=== PATIENT | female | born 1955 | race Caucasian/White ===

== ENCOUNTER → 2019-01-02 | Outpatient (CLI) | payer OTHER | END | disposition home or self-care (01) | LOC: ROC 08:44 | PROVIDERS: ATTEND Radiology Radiation Oncology | DX: D37.02 Neoplasm of uncertain behavior of tongue (principal) | CPT/HCPCS: 99214; G0463 ==

== ENCOUNTER 2019-03-09 08:04 | Day surgery (SDC) | payer OTHER ==
[~2019-03-09] VITALS: Ht 152.4 cm; Wt 49.8 kg
[2019-03-09 08:51] VITALS: BP 142/62
[2019-03-09] MEDS ORDERED: BACL-19 PO (08:56)
[2019-03-09] MEDS ORDERED: HYDR-3237 PO (08:56)
[2019-03-09] MEDS ORDERED: IBUP-1222 PO (08:56)
[2019-03-09] MEDS ORDERED: PARO10TA3 PO (08:56)
[2019-03-09] MEDS ORDERED: SODIUM CHLORIDE 0.9% 1,000 ML IV SCH (09:05)
[2019-03-09] MEDS ORDERED: FLUMAZENIL 0.1 MG/1 ML, 5ML ONE (09:22)
[2019-03-09] MEDS ORDERED: MIDAZOLAM 1 MG/ML, 5ML ONE (09:22)
[2019-03-09] MEDS ORDERED: LIDOCAINE-MPF 1%, 5ML ONE ×3 (09:22→10:14)
[2019-03-09] MEDS ORDERED: FENTANYL PF 100 MCG/2ML ONE (09:22)
[2019-03-09] MEDS ORDERED: NALOXONE 1 MG/ML, 2ML ONE (09:22)
[2019-03-09] MEDS ORDERED: LIDOCAINE 2%, 6 ML JEL.PF.APP MM ONE (09:34)
[2019-03-09] MEDS ORDERED: VISIPAQUE 270 MG/ML, 50ML BOTTLE ONE (11:52)
== END 2019-03-09 13:10 | disposition home or self-care (01) ==
LOC: OUT 08:04
PROVIDERS: ATTEND Radiology Radiation Oncology
DX: C01 Malignant neoplasm of base of tongue (principal); E46 Unspecified protein-calorie malnutrition; Z88.8 Allergy status to other drugs, medicaments and biological substances; Z87.891 Personal history of nicotine dependence; Z79.899 Other long term (current) drug therapy; Z98.890 Other specified postprocedural states; Z80.1 Family history of malignant neoplasm of trachea, bronchus and lung; Z82.49 Family history of ischemic heart disease and other diseases of the circulatory system
CPT/HCPCS: 49440; 99156; 99157; C1725; C1729; C1751; C1769; C1894; J2250; J3010; J7030; Q9966; J2310

== ENCOUNTER 2019-04-17 07:14 | Outpatient (CLI) | payer OTHER ==
[~2019-04-17 07:14] MED LIST: BACL-19 PO; HYDR-3237 PO; IBUP-1222 PO; PARO10TA3 PO
== END 2019-04-17 23:59 | disposition home or self-care (01) ==
LOC: ROC 07:14
PROVIDERS: ATTEND Radiology Radiation Oncology
DX: C01 Malignant neoplasm of base of tongue (principal)
CPT/HCPCS: 99213; G0463

== ENCOUNTER 2019-07-20 09:51 | Outpatient (CLI) | payer OTHER ==
[~2019-07-20 09:51] MED LIST changes: +AMOX1TAB64 PO; +HYDR-3245 PO
== END 2019-07-20 23:59 | disposition home or self-care (01) ==
LOC: ROC 09:51
PROVIDERS: ATTEND Radiology Radiation Oncology
DX: Z08 Encounter for follow-up examination after completed treatment for malignant neoplasm (principal); Z85.810 Personal history of malignant neoplasm of tongue
CPT/HCPCS: 99212; G0463

== ENCOUNTER → 2019-08-24 | Outpatient (CLI) | payer OTHER | END | disposition home or self-care (01) | LOC: ROC 10:01 | PROVIDERS: ATTEND Radiology Radiation Oncology | DX: C01 Malignant neoplasm of base of tongue (principal); Z85.810 Personal history of malignant neoplasm of tongue; F17.200 Nicotine dependence, unspecified, uncomplicated; Z88.0 Allergy status to penicillin; Z88.1 Allergy status to other antibiotic agents | CPT/HCPCS: 99212; G0463 ==

== ENCOUNTER 2019-09-29 12:08 | Emergency (ER) | payer OTHER ==
[~2019-09-29] VITALS: Ht 152.4 cm; Wt 45.8 kg
--- NOTE | 2019-09-29 12:33 | NUR ---
Pt here today for g-tube insertion site bulging and having odd drainage. When pt removed dressing it appared purulent and is bulging. 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 Pt reports its uncomfortable and this is her second feeding tube shes had to have placed. Pt denies any other complaints at this time. Pt resting in bed. Awaiting further orders.
[2019-09-29] MEDS ORDERED: SODIUM CHLORIDE 0.9% 1,000ML IVBOLUS ONE (13:00)
[2019-09-29] MEDS ORDERED: SODIUM CHLORIDE FLUSH 10ML SYR IVF ONE (13:00)
[2019-09-29 13:05] LABS: BASOPHILS % (AUTO) 0 % (0-1); EOSINOPHILS # (AUTO) 0.06 x10^3/uL (0-0.4); EOSINOPHILS % (AUTO) 1 % (1-7); LYMPHOCYTES # (AUTO) 0.34 x10^3/uL (1-3.4); LYMPHOCYTES % (AUTO) 4 % (22-44); MD NO; MEAN CORPUSCULAR HEMOGLOBIN 29.3 pg (27.0-34.8); MEAN CORPUSCULAR HGB CONC 32.5 g/dL (32.4-35.8); MEAN CORPUSCULAR VOLUME 90.3 fL (80-100); MEAN PLATELET VOLUME 6.7 fL (7.4-10.4); MONOCYTES # (AUTO) 0.59 x10^3/uL (0.2-0.8); MONOCYTES % (AUTO) 7 % (2-9); NEUTROPHILS # (AUTO) 6.96 x10^3/uL (1.8-6.8); NEUTROPHILS % (AUTO) 88 % (42-75); PLATELET COUNT 472 x10^3/uL (130-400); RED BLOOD COUNT 3.74 x10^6/uL (3.82-5.3); RED CELL DISTRIBUTION WIDTH 15.1 % (9.6-15.2)
[2019-09-29 13:17] LABS: ALANINE AMINOTRANSFERASE 17 U/L (12-78); ALBUMIN 3.4 g/dL (3.4-5.0); ANION GAP 5 mmol/L (5-15); CALCIUM 10.1 mg/dL (8.5-10.1); CHLORIDE 102 mmol/L (98-107); CREATININE 0.64 mg/dL (0.55-1.02)
--- NOTE | 2019-09-29 13:18 | NUR ---
Piv placed and medicated per emar. Warm blanket provided for comfort.
[2019-09-29 13:19] LABS: ALKALINE PHOSPHATASE 86 U/L (45-117); BILIRUBIN,TOTAL 0.6 mg/dL (0.2-1.0); TOTAL PROTEIN 7.6 g/dL (6.4-8.2)
[2019-09-29 13:21] LABS: INTERNATIONAL NORMALIZED RATIO 0.97 (0.93-1.1); PROTHROMBIN TIME 10.2 Seconds (9.6-11.5)
[2019-09-29] MEDS ORDERED: OMNIPAQUE 350 MG/ML, 100ML BOTTLE ONE (13:53)
--- NOTE | 2019-09-29 15:44 | NUR ---
Patient is resting comfortably in bed. Vital Signs within normal limits.
[2019-09-29 15:46] LABS: MICROSCOPIC INDICATED
[2019-09-29 15:55] LABS: CULTURE INDICATED? YES
--- NOTE | 2019-09-29 17:33 | NUR ---
BREAK NOTE: PT. IS RESTING WITHOUT CONCERNS. VSS. PT. HAS THE CALL LIGHT IN PLACE AND THE SIDERAILS REMAIN UP X 2.
[2019-09-29] MEDS ORDERED: FENTANYL PF 100 MCG/2ML ONE (17:50)
[2019-09-29] MEDS ORDERED: MIDAZOLAM 1 MG/ML, 5ML ONE (17:50)
[2019-09-29] MEDS ORDERED: LIDOCAINE 1%, 20ML ONE (17:54)
[2019-09-29] MEDS ORDERED: LIDOCAINE 1%, 10ML ONE (17:58)
[2019-09-29 19:45] VITALS: BP 110/62
== END 2019-09-29 19:47 | disposition home or self-care (01) ==
LOC: ED 15:19
DX: K94.23 Gastrostomy malfunction (principal); R10.33 Periumbilical pain
CPT/HCPCS: 36415; 49450; 74177; 76000; 80053; 81001; 85025; 85610; 85730; 87040; 87086; 99156; 99157; 99285; C1725; C1729; C1751; C1769; J2250; J3010; J3490; J7030; Q9967; 99284

== ENCOUNTER 2020-02-29 15:00 | Outpatient (CLI) | payer OTHER | END 2020-02-29 23:59 | disposition home or self-care (01) | LOC: ROC 15:00 | PROVIDERS: ATTEND Radiology Radiation Oncology | DX: C01 Malignant neoplasm of base of tongue (principal); Z43.1 Encounter for attention to gastrostomy; Z87.891 Personal history of nicotine dependence | CPT/HCPCS: 99213; G0463 ==

== ENCOUNTER 2020-03-06 12:48 | Emergency (ER) | payer OTHER ==
[~2020-03-06] VITALS: Ht 162.6 cm; Wt 44.9 kg
--- NOTE | 2020-03-06 13:10 | NUR ---
Pt back to room now.
--- NOTE | 2020-03-06 13:21 | NUR ---
Pt here for gastric tube obstruction, gastric tube flushed without difficulty. Pt reports she tried multiple times and said it did not work. Pt educated on how to flush tube.
--- NOTE | 2020-03-06 13:52 | NUR ---
Pt to IR.
--- NOTE | 2020-03-06 13:57 | NUR ---
REPORT FROM PAULETTE ARREDONDO. PT CARE RESPONSIBILITIES ASSUMED.
[2020-03-06 14:40] VITALS: BP 141/74
--- NOTE | 2020-03-06 15:03 | NUR ---
PT RETURNED FROM IR. UP TO RESTROOM WITH NO ASSISTANCE NECESSARY. DENIES ANY NEEDS OR CONCERNS AT THIS TIME, CALL LIGHT IN REACH.
== END 2020-03-06 15:38 | disposition home or self-care (01) ==
LOC: ED 13:24
DX: K94.23 Gastrostomy malfunction (principal); F17.200 Nicotine dependence, unspecified, uncomplicated
CPT/HCPCS: 49450; 75984; 99285

== ENCOUNTER → 2020-04-14 | Outpatient (CLI) | payer OTHER ==
[~2020-04-14] MED LIST changes: +OMNIPAQUE 350 MG/ML, 150 ML BOTTLE ONE
== END | disposition home or self-care (01) ==
LOC: RAD 09:53
PROVIDERS: ATTEND Student in an Organized Health Care Education/Training Program
DX: C10.9 Malignant neoplasm of oropharynx, unspecified (principal); R91.8 Other nonspecific abnormal finding of lung field
CPT/HCPCS: 36415; 70491; 71260; 82565; Q9967

== ENCOUNTER 2020-05-02 12:11 | Emergency (ER) | payer OTHER ==
[~2020-05-02] VITALS: Ht 152.4 cm; Wt 44.2 kg
[~2020-05-02 12:11] MED LIST changes: -OMNIPAQUE 350 MG/ML, 150 ML BOTTLE ONE
[2020-05-02 12:19] VITALS: BP 88/56
--- NOTE | 2020-05-02 12:50 | NUR ---
MEDIA REPORTER: PT TO ROOM FROM LOBBY
--- NOTE | 2020-05-02 13:05 | NUR ---
PT RESTING COMFORTABLY IN GOWN IN [facility]. DR OTT AT BS AT THIS TIME.
--- NOTE | 2020-05-02 15:05 | NUR ---
PT D/C WITH D/C SUMMARY AND VERBALIZES UNDERSTANDING OF F/U INSTRUCTIONS. PT DENIES ANY OTHER NEEDS PERTAINING TO THIS VISIT AND AMBULATES TO REGISTRATION DESK WITH STEADY GAIT FOR D/C [facility].
== END 2020-05-02 15:21 | disposition home or self-care (01) ==
LOC: ED 14:45
DX: K94.23 Gastrostomy malfunction (principal); Z85.818 Personal history of malignant neoplasm of other sites of lip, oral cavity, and pharynx
CPT/HCPCS: 99281

== ENCOUNTER 2020-05-02 16:35 | Emergency (ER) | payer OTHER ==
[~2020-05-02] VITALS: Ht 152.4 cm; Wt 44.4 kg
[2020-05-02 16:51] VITALS: BP 84/40
--- NOTE | 2020-05-02 17:26 | NUR ---
PT TO RADIOLOGY VIA [facility] AT THIS TIME.
--- NOTE | 2020-05-02 19:13 | NUR ---
PT D/C WITH D/C SUMMARY. ALL QUESTIONS ANSWERED. PT AMBULATES TO REGISTRATION DESK WITH STEADY GAIT FOR D/C HOME AND DENIES ANY OTHER NEEDS PERTAINING TO THIS VISIT.
== END 2020-05-02 19:15 | disposition home or self-care (01) ==
LOC: ED 19:00
DX: K94.23 Gastrostomy malfunction (principal); Z86.003 Personal history of in-situ neoplasm of oral cavity, esophagus and stomach
CPT/HCPCS: 75984; 99285

== ENCOUNTER → 2020-06-24 | Outpatient (CLI) | payer OTHER ==
[~2020-06-24] MED LIST changes: +BACL5TAB PEG; +GLYC2TAB21 PEG; +NICO-487 TD; +PARO10TA3 PEG; -PARO10TA3 PO
== END | disposition home or self-care (01) ==
LOC: STAR 12:53
PROVIDERS: ATTEND Anesthesiology
DX: Z01.812 Encounter for preprocedural laboratory examination (principal); Z20.828 Contact with and (suspected) exposure to other viral communicable diseases
CPT/HCPCS: 36415; 87635

== ENCOUNTER 2020-06-28 07:20 | Emergency (ER) | payer OTHER ==
[~2020-06-28] VITALS: Ht 152.4 cm; Wt 46.0 kg
[~2020-06-28 07:20] MED LIST changes: -BACL5TAB PEG; -GLYC2TAB21 PEG; -NICO-487 TD
--- NOTE | 2020-06-28 07:59 | NUR ---
PT PLACED IN HOSPITAL GOWN. EKG DONE. PT GIVEN WARM BLANKET, PT ON CARDIAC AND VITALS MONITORS.
[2020-06-28] MEDS ORDERED: MORPHINE SULFATE 4 MG/ML, 1ML IVPush PRN (08:00)
[2020-06-28] MEDS ORDERED: SODIUM CHLORIDE 0.9% 1,000ML IVBOLUS ONE (08:00)
[2020-06-28] MEDS ORDERED: ONDANSETRON 2MG/ML, 2ML IVPush ONE (08:00)
[2020-06-28] MEDS ORDERED: ONDANSETRON 2MG/ML, 2ML ONE (08:09)
[2020-06-28] MEDS ORDERED: MORPHINE SULFATE 4 MG/ML, 1ML ONE (08:09)
[2020-06-28] MEDS ORDERED: GLYC2TAB21 PEG (08:25)
[2020-06-28] MEDS ORDERED: NICO-487 TD (08:25)
--- NOTE | 2020-06-28 08:35 | NUR ---
IV STARTED, PT MEDICATED PER EMAR. LAB IN NOW DRAWING BLOOD CULTURES. PT UPDATED TO PLAN OF CARE.
[2020-06-28 08:44] LABS: BASOPHILS # (AUTO) 0.04 x10^3/uL (0-0.1); BASOPHILS % (AUTO) 0 % (0-1); EOSINOPHILS # (AUTO) 0.15 x10^3/uL (0-0.4); EOSINOPHILS % (AUTO) 1 % (1-7); LYMPHOCYTES # (AUTO) 0.39 x10^3/uL (1-3.4); LYMPHOCYTES % (AUTO) 4 % (22-44); MD NO; MEAN CORPUSCULAR HEMOGLOBIN 30.3 pg (27.0-34.8); MEAN CORPUSCULAR HGB CONC 32.7 g/dL (32.4-35.8); MEAN PLATELET VOLUME 6.9 fL (7.4-10.4); MONOCYTES # (AUTO) 0.44 x10^3/uL (0.2-0.8); MONOCYTES % (AUTO) 4 % (2-9); NEUTROPHILS # (AUTO) 9.37 x10^3/uL (1.8-6.8); NEUTROPHILS % (AUTO) 90 % (42-75); PLATELET COUNT 412 x10^3/uL (130-400); RED BLOOD COUNT 3.68 x10^6/uL (3.82-5.3); RED CELL DISTRIBUTION WIDTH 12.4 % (9.6-15.2)
[2020-06-28 08:54] LABS: ALBUMIN 3.1 g/dL (3.4-5.0); ANION GAP 3 mmol/L (5-15); CALCIUM 9.5 mg/dL (8.5-10.1); CHLORIDE 97 mmol/L (98-107); CREATININE 0.54 mg/dL (0.55-1.02)
--- NOTE | 2020-06-28 09:00 | NUR ---
PT PLACED ON 2.5L O2 DUE TO DESATING AFTER MORPHINE ADMIN. PT SATING 96% WITH O2, WILL CONTINUE TO MONITOR.
[2020-06-28 09:37] LABS: MICROSCOPIC NOT IND
--- NOTE | 2020-06-28 09:44 | NUR ---
URINE TAKEN TO LAB. PT RESTING IN BED, SNOOZING OFF AND ON.
[2020-06-28 10:55] VITALS: BP 142/62
[2020-06-29] MEDS ORDERED: BACL5TAB PEG (07:46)
== END 2020-06-28 10:51 | disposition home or self-care (01) ==
LOC: ED 08:31
DX: E87.1 Hypo-osmolality and hyponatremia (principal); R25.1 Tremor, unspecified; I51.7 Cardiomegaly; Z79.899 Other long term (current) drug therapy; Z85.819 Personal history of malignant neoplasm of unspecified site of lip, oral cavity, and pharynx
CPT/HCPCS: 71045; 80048; 81003; 82040; 82962; 83605; 85025; 87040; 93005; 96361; 96374; 96375; 99285; J2270; J2405; J7030

== ENCOUNTER 2020-08-05 14:38 | Emergency (ER) | payer OTHER ==
[~2020-08-05] VITALS: Ht 152.4 cm; Wt 46.5 kg
[~2020-08-05 14:38] MED LIST changes: +BACL5TAB PEG; +GLYC2TAB21 PEG; +NICO-487 TD
--- NOTE | 2020-08-05 14:52 | NUR ---
DIRECTOR OF MUSIC THERAPY: PT TO ROOM, [facility]
[2020-08-05 15:20] LABS: MEAN CORPUSCULAR HEMOGLOBIN 28.8 pg (27.0-34.8); MEAN PLATELET VOLUME 6.5 fL (7.4-10.4); PLATELET COUNT 731 x10^3/uL (130-400); RED BLOOD COUNT 3.17 x10^6/uL (3.82-5.3); RED CELL DISTRIBUTION WIDTH 17.7 % (9.6-15.2)
[2020-08-05 15:28] LABS: ALBUMIN 2.4 g/dL (3.4-5.0); ANION GAP 7 mmol/L (5-15); CALCIUM 9.6 mg/dL (8.5-10.1); CHLORIDE 104 mmol/L (98-107); CREATININE 0.87 mg/dL (0.55-1.02)
[2020-08-05 15:36] LABS: MD YES
--- NOTE | 2020-08-05 15:37 | NUR ---
SON, BRYAN, PHONE NUMBER .
--- NOTE | 2020-08-05 15:45 | NUR ---
RESPIRATORY THERAPY CLEANED INNER CANULA OF TRACHEOSTOMY AND REMOVED A MUCOUS PLUG ALSO. DR. ZHENG NOTIFIED.
[2020-08-05 16:25] LABS: BANDS%(MANUAL) 4 % (0-7); LYMPH#(MANUAL) 0.69 x10^3/uL (1-3.4); LYMPHS% (MANUAL) 7 % (22-44); MONOS% (MANUAL) 5 % (2-9); SEG#(MANUAL) 8.32 x10^3/uL (1.8-6.8); SEGS% (MANUAL) 84 % (42-75)
[2020-08-05 16:26] LABS: HYPOCHROMIA 1+; MICROCYTOSIS 1+; POLYCHROMASIA 1+
[2020-08-05 16:27] LABS: <PLATELET ESTIMATE> INCREASED; SMALL PLATELETS 1+
[2020-08-05 16:34] VITALS: BP 108/45
== END 2020-08-05 16:36 | disposition home or self-care (01) ==
LOC: ED 15:52
DX: R06.09 Other forms of dyspnea (principal); C79.89 Secondary malignant neoplasm of other specified sites; C80.1 Malignant (primary) neoplasm, unspecified
CPT/HCPCS: 36415; 71045; 80048; 82040; 85025; 99284

== ENCOUNTER 2020-08-07 23:56 | Inpatient (IN) | payer OTHER ==
[~2020-08-07] VITALS: Ht 152.4 cm; Wt 41.0 kg
[2020-08-08] MEDS ORDERED: SODIUM CHLORIDE FLUSH 10ML SYR IVF ONE (00:30)
--- NOTE | 2020-08-08 00:30 | NUR ---
PT RESTING IN [place] WITH SON AT BEDSIDE. NO COMPLAINTS OR NEEDS AT THIS TIME.
[2020-08-08 01:26] LABS: BASOPHILS % (AUTO) 1 % (0-1); EOSINOPHILS % (AUTO) 0 % (1-7); LYMPHOCYTES % (AUTO) 1 % (22-44); MEAN CORPUSCULAR HEMOGLOBIN 28.3 pg (27.0-34.8); MEAN CORPUSCULAR HGB CONC 32.6 g/dL (32.4-35.8); MEAN PLATELET VOLUME 6.6 fL (7.4-10.4); MONOCYTES % (AUTO) 6 % (2-9); NEUTROPHILS % (AUTO) 92 % (42-75); PLATELET COUNT 739 x10^3/uL (130-400); RED BLOOD COUNT 3.08 x10^6/uL (3.82-5.3); RED CELL DISTRIBUTION WIDTH 19.1 % (9.6-15.2)
[2020-08-08 01:33] LABS: ALBUMIN 2.5 g/dL (3.4-5.0); ANION GAP 8 mmol/L (5-15); CALCIUM 9.1 mg/dL (8.5-10.1); CHLORIDE 97 mmol/L (98-107); CREATININE 1.45 mg/dL (0.55-1.02)
--- NOTE | 2020-08-08 01:36 | NUR ---
PT RESTING IN GURNEY WITH EYES CLOSED. SON AT BEDSIDE, NO NEEDS AT THIS TIME.
[2020-08-08 01:38] LABS: ALKALINE PHOSPHATASE 83 U/L (45-117); BILIRUBIN,TOTAL 0.5 mg/dL (0.2-1.0); TOTAL PROTEIN 6.5 g/dL (6.4-8.2)
[2020-08-08 01:40] LABS: ALANINE AMINOTRANSFERASE 1575 U/L (12-78)
[2020-08-08 01:44] LABS: TROPONIN I 0.517 ng/mL (0.000-0.045)
[2020-08-08] MEDS ORDERED: CEFEPIME 1 GM in DEXTROSE 5% 50 ML IV ONE (02:00)
[2020-08-08] MEDS ORDERED: AZITHROMYCIN 500 MG in SODIUM CHLORIDE 0.9% 250 ML IV ONE (02:00)
[2020-08-08] MEDS ORDERED: VANCOMYCIN PER PHARMACY MC PRN ×2 (02:00→04:00)
[2020-08-08] MEDS ORDERED: VANCOMYCIN 1,300 MG in SODIUM CHLORIDE 0.9% 250 ML IV ONE (02:00)
--- NOTE | 2020-08-08 02:01 | NUR ---
GEE RN: REPORT RECEIVED FROM REGINA CALDWELL
--- NOTE | 2020-08-08 02:05 | NUR ---
REPORT GIVEN TO PAULETTE BRANDON.
--- NOTE | 2020-08-08 02:05 | NUR ---
SON'S PHONE NUMBER - [phone]
[2020-08-08 02:16] LABS: MD SCAN
--- NOTE | 2020-08-08 02:29 | NUR ---
BREAK RN: REPORT GIVEN TO PRIMARY RN
[2020-08-08] MEDS ORDERED: SODIUM CHLORIDE 0.9% 1,000ML IVBOLUS ONE (03:00)
--- NOTE | 2020-08-08 03:15 | NUR ---
ZITHROMYACIN FINISHED. NS RUNNING. PT SLEEPING WITH NO NEEDS AT THIS TIME. VSS. CALL LIGHT IN REACH
[2020-08-08] MEDS ORDERED: POLYETHYLENE GLYCOL 17 GM PACKET PO PRN (03:30)
[2020-08-08] MEDS ORDERED: BISACODYL 10 MG SUPP PR PRN (03:30)
[2020-08-08] MEDS ORDERED: ONDANSETRON ODT 4 MG PO PRN (03:30)
[2020-08-08] MEDS ORDERED: ONDANSETRON 2MG/ML, 2ML IVPush PRN ×2 (03:30→17:00)
[2020-08-08] MEDS ORDERED: D5%-0.45NACL+KCL 20MEQ 1,000 ML IV SCH (03:30)
[2020-08-08] MEDS ORDERED: OXYcodone IR 5MG TABLET PO PRN (03:30)
[2020-08-08] MEDS ORDERED: PROMETHAZINE 25 MG/ML, 1ML IM PRN (03:30)
[2020-08-08] MEDS ORDERED: LABETALOL 5MG/ML, 20ML IVPush PRN (03:30)
[2020-08-08] MEDS ORDERED: DOCUSATE 100 MG CAPSULE PO PRN (03:30)
[2020-08-08 04:00] LABS: FREE T4 (FREE THYROXINE) 1.27 ng/dL (0.76-1.46)
[2020-08-08] MEDS ORDERED: ERTAPENEM 1 GM in SODIUM CHLORIDE 0.9% 50 ML IV SCH (04:00)
--- NOTE | 2020-08-08 04:01 | NUR ---
ABX RUNNING. PT HAS NO NEEDS AT THIS TIME. CALL LIGHT IN REACH
[2020-08-08] MEDS: D5%-0.45% NACL 1,000 ML IV SCH ×2 (04:49→12:33)
[2020-08-08] MEDS ORDERED: PHARMACOKINETIC CONSULTATION MC ONE (05:00)
[2020-08-08] MEDS ORDERED: PHARMACOKINETIC MONITORING MC PRN (05:00)
[2020-08-08 05:14] VITALS: BP 95/56
[2020-08-08] MEDS: BACLOFEN 10 MG TABLET PEG SCH ×2 (05:33→11:00)
[2020-08-08] MEDS: HEPARIN 5,000 UNITS/ML, 1ML SQ SCH ×2 (05:33→12:34)
[2020-08-08] MEDS: morphine SULFATE 10 MG/ML, 1ML IVPush PRN ×3 (06:43→16:41)
[2020-08-08] MEDS ORDERED: MORP20CA17 PO (07:04)
[2020-08-08] MEDS ORDERED: PAROXETINE 10 MG TABLET PEG SCH (09:00)
[2020-08-08 10:45] VITALS: BP 101/65
[2020-08-08] MEDS ORDERED: MORPHINE SULFATE 4 MG/ML, 1ML IVPush PRN (17:00)
[2020-08-08] MEDS: SCOPOLAMINE 1MG PATCH TD SCH (17:38)
[2020-08-08] MEDS: LORazepam 2 MG/ML, 1ML IVPush SCH (17:39)
[2020-08-08] MEDS: MORPHINE 30MG/30ML PCA.SYR IV PRN ×2 (17:53→23:33)
[2020-08-09] MEDS: LORazepam 2 MG/ML, 1ML IVPush SCH ×4 (01:33→22:22)
[2020-08-09 05:31] LABS: BASOPHILS % (AUTO) 1 % (0-1); EOSINOPHILS % (AUTO) 2 % (1-7); LYMPHOCYTES % (AUTO) 5 % (22-44); MEAN CORPUSCULAR HEMOGLOBIN 28.6 pg (27.0-34.8); MEAN CORPUSCULAR HGB CONC 32.4 g/dL (32.4-35.8); MEAN PLATELET VOLUME 6.5 fL (7.4-10.4); MONOCYTES % (AUTO) 12 % (2-9); NEUTROPHILS % (AUTO) 81 % (42-75); PLATELET COUNT 613 x10^3/uL (130-400); RED BLOOD COUNT 2.86 x10^6/uL (3.82-5.3); RED CELL DISTRIBUTION WIDTH 18.2 % (9.6-15.2)
[2020-08-09 05:36] LABS: ALANINE AMINOTRANSFERASE 933 U/L (12-78); ALBUMIN 1.9 g/dL (3.4-5.0); ANION GAP 3 mmol/L (5-15); CALCIUM 8.6 mg/dL (8.5-10.1); CHLORIDE 103 mmol/L (98-107); CHOLESTEROL, TOTAL 117 mg/dL (140-239); CREATININE 0.71 mg/dL (0.55-1.02)
[2020-08-09 05:39] LABS: ALKALINE PHOSPHATASE 72 U/L (45-117); BILIRUBIN,TOTAL 0.6 mg/dL (0.2-1.0); CHOL/HDL RATIO 3.9; HDL CHOL % 26 % (28-40); HDL CHOLESTEROL (DIRECT) 30 mg/dL (40-60); LDL CHOLESTEROL,CALCULATED 62 mg/dL (54-169); LDL/HDL RATIO 2.1 (0.5-3.0); TOTAL PROTEIN 5.8 g/dL (6.4-8.2); TRIGLYCERIDES 126 mg/dL (50-200); VANCOMYCIN,RANDOM 7.5 mcg/mL; VLDL CHOLESTEROL 25 mg/dL (0-25)
[2020-08-09 05:42] LABS: MD NO
[2020-08-09] MEDS: MORPHINE 30MG/30ML PCA.SYR IV PRN ×5 (06:03→23:00)
[2020-08-09] MEDS: LORazepam 2 MG/ML, 1ML IVPush PRN ×2 (12:05→18:09)
[2020-08-10] MEDS: MORPHINE 30MG/30ML PCA.SYR IV PRN ×2 (03:21→07:53)
[2020-08-10] MEDS: LORazepam 2 MG/ML, 1ML IVPush SCH ×4 (03:52→21:55)
[2020-08-10] MEDS: morphine SULFATE 100 MG in DEXTROSE 5% 90 ML IV PRN ×2 (12:15→23:43)
[2020-08-11] MEDS: LORazepam 2 MG/ML, 1ML IVPush SCH ×4 (03:44→21:11)
[2020-08-11] MEDS: morphine SULFATE 100 MG in DEXTROSE 5% 90 ML IV PRN ×2 (10:32→22:21)
[2020-08-11] MEDS: SCOPOLAMINE 1MG PATCH TD SCH (15:53)
[2020-08-11] MEDS: ATROPINE OPHTH SOLN 1%, 5ML PO PRN ×2 (22:26→23:55)
[2020-08-12] MEDS: ATROPINE OPHTH SOLN 1%, 5ML PO PRN ×4 (00:42→09:46)
[2020-08-12] MEDS: LORazepam 2 MG/ML, 1ML IVPush SCH ×2 (03:31→09:46)
[2020-08-12] MEDS: morphine SULFATE 100 MG in DEXTROSE 5% 90 ML IV PRN (10:00)
== END 2020-08-12 15:00 | disposition expired | DRG 871 ==
LOC: ED 08-08 00:21 → EDIP 08-08 02:33 → 4NW 08-08 04:25
PROVIDERS: ADMIT Internal Medicine; ATTEND Internal Medicine
DX: A41.9 Sepsis, unspecified organism (principal); I21.4 Non-ST elevation (NSTEMI) myocardial infarction; J15.9 Unspecified bacterial pneumonia; J96.01 Acute respiratory failure with hypoxia; N17.0 Acute kidney failure with tubular necrosis; C78.00 Secondary malignant neoplasm of unspecified lung; E87.1 Hypo-osmolality and hyponatremia; R64 Cachexia; Z68.1 Body mass index [BMI] 19.9 or less, adult; D64.9 Anemia, unspecified; C32.9 Malignant neoplasm of larynx, unspecified; E86.0 Dehydration; E88.09 Other disorders of plasma-protein metabolism, not elsewhere classified; F17.200 Nicotine dependence, unspecified, uncomplicated; F41.9 Anxiety disorder, unspecified; G89.3 Neoplasm related pain (acute) (chronic); Z51.5 Encounter for palliative care; Z66 Do not resuscitate; Z85.819 Personal history of malignant neoplasm of unspecified site of lip, oral cavity, and pharynx; Z85.89 Personal history of malignant neoplasm of other organs and systems; Z93.0 Tracheostomy status
CPT/HCPCS: 36415; 36600; 71045; 80053; 80061; 80202; 82803; 83036; 83605; 83735; 83880; 84100; 84439; 84443; 84484; 85025; 86480; 87040; 93005; 96374; 99291; G0378; J0456; J0692; J1644; J2270; J3370; J2060; J7030; J7050